=== PATIENT | female | born 1965 | race African-American/Black ===

== ENCOUNTER 2021-07-13 04:16 | Emergency (ER) | payer MEDICAID ==
[~2021-07-13] VITALS: Ht 165.1 cm; Wt 71.0 kg
[~2021-07-13 04:16] MED LIST: metformin
[2021-07-13] MEDS ORDERED: SODIUM CHLORIDE 0.9% 1,000 ML IV ONE (04:30)
[2021-07-13] MEDS ORDERED: KETOROLAC 30MG/ML VIAL IV ONE (04:45)
[2021-07-13 05:15] LABS: BASOPHILS % 0.4 % (0.0-2.0); EOSINOPHILS % 0.1 % (0.0-5.0); HEMATOCRIT. 39.1 % (36.0-48.0); HEMOGLOBIN. 13.6 g/dL (12.0-16.0); LYMPHOCYTES % 24.4 % (20.0-50.0); MEAN CORPUSCULAR VOLUME 103.7 fL (81.0-99.0); MEAN PLATELET VOLUME 8.1 fl (7.4-10.4); MONOCYTES % 5.4 % (2.0-8.0); NEUTROPHILS % 69.7 % (40.0-76.0); PLATELET 247 x1000/uL (130-400); RED BLOOD CELL COUNT 3.77 mill/uL (4.2-5.4); RED CELL DISTRIBUTION WIDTH 14.3 % (11.6-14.6)
[2021-07-13 05:22] LABS: CHLORIDE 110 mEq/L (98-107)
[2021-07-13 05:27] LABS: ETHANOL BLOOD 28 mg/dL
[2021-07-13 05:29] LABS: BETA HYDROXYBUTYRATE 0.1 mMol/L (0.0-0.3)
[2021-07-13] MEDS ORDERED: MORPHINE SULFATE 2 MG/ML CPJ (NOT FOR IM USE) IV SCH (06:15)
[2021-07-13] MEDS ORDERED: METOCLOPRAMIDE HCL 10MG/2ML VIAL IV ONE (06:15)
[2021-07-13] MEDS ORDERED: MORPHINE SULFATE 4 MG/ML CPJ (NOT FOR IM USE) IV ONE (06:15)
[2021-07-13] MEDS ORDERED: TOPUD PO (07:55)
[2021-07-13] MEDS ORDERED: ONDA4TAB5 PO (07:55)
[2021-07-13 08:05] VITALS: BP 155/82
== END 2021-07-13 08:15 | disposition home or self-care (01) ==
LOC: ER 04:44
DX: R10.13 Epigastric pain (principal); E11.9 Type 2 diabetes mellitus without complications
CPT/HCPCS: 36415; 74176; 80053; 80320; 82010; 82962; 83605; 83690; 85025; 96361; 96374; 96375; 99284; J1885; J2270; J2765; J7030; G0480

== ENCOUNTER 2023-08-26 02:28 | Emergency (ER) | payer MEDICAID, OTHER ==
[~2023-08-26] VITALS: Ht 162.6 cm; Wt 91.0 kg
[~2023-08-26 02:28] MED LIST changes: +ONDA4TAB5 PO; +TOPUD PO
[2023-08-26 02:31] VITALS: O2SAT 100
[2023-08-26] MEDS ORDERED: MAGNESIUM/ALUMINUM HYDROXIDE/SIMETHICONE 30ML UDC PO STA (02:38)
[2023-08-26] MEDS ORDERED: ONDANSETRON HCL 4MG/2ML INJ IV STA (02:38)
[2023-08-26] MEDS ORDERED: PANTOPRAZOLE SODIUM 40 MG/VIAL IV STA (02:38)
[2023-08-26] MEDS ORDERED: SODIUM CHLORIDE 0.9% 1,000 ML IV ONE (02:45)
[2023-08-26 02:54] LABS: DIFFERENTIAL COMMENT 0; EOSINOPHILS % 0.1 % (0.0-5.0); HEMATOCRIT. 45.1 % (36.0-48.0); HEMOGLOBIN. 15.5 g/dL (12.0-16.0); LYMPHOCYTES % 36.5 % (20.0-50.0); MEAN CORPUSCULAR HEMOGLOBIN 34.8 pg (28.0-32.0); MEAN CORPUSCULAR HGB CONC 34.4 g/dL (31.0-37.0); MEAN CORPUSCULAR VOLUME 101.3 fL (81.0-99.0); MEAN PLATELET VOLUME 8.3 fl (7.4-10.4); MONOCYTES % 6.2 % (2.0-8.0); NEUTROPHILS % 56.2 % (40.0-76.0); PLATELET 265 x1000/uL (130-400); RED BLOOD CELL COUNT 4.45 mill/uL (4.2-5.4); RED CELL DISTRIBUTION WIDTH 14.2 % (11.6-14.6); WHITE BLOOD COUNT 6.5 x1000/uL (4.5-11.0)
[2023-08-26 03:18] LABS: ALANINE AMINOTRANSFERASE 11 IU/L (10-49); ASPARTATE AMINOTRANSFERASE 20 IU/L (<34); BILIRUBIN TOTAL 1.5 mg/dL (0.1-1.0); CALCIUM 10.4 mg/dL (8.7-10.4); CARBON DIOXIDE 26 mEq/L (21-32); CHLORIDE 102 mEq/L (98-107); CREATININE 0.8 mg/dL (0.6-1.0); GLUCOSE 172 mg/dL (70-105); POTASSIUM 3.3 mEq/L (3.5-5.1); SODIUM 139 mEq/L (136-145); UREA NITROGEN BLOOD 10 mg/dL (9-23)
[2023-08-26 03:19] LABS: INR 1.2; PROTHROMBIN TIME 12.8 sec (9.6-11.0)
[2023-08-26 03:20] LABS: ETHANOL BLOOD < 10 mg/dL (<10)
[2023-08-26] MEDS ORDERED: MORPHINE SULFATE 2 MG/ML CPJ (NOT FOR IM USE) IV ONE (03:45)
[2023-08-26] MEDS ORDERED: PROT40 MT (04:42)
[2023-08-26] MEDS ORDERED: ONDA4TAB50 MT (04:42)
[2023-08-26] MEDS ORDERED: MAG355OR21 MT (04:42)
[2023-08-26 05:01] VITALS: BP 141/72; PULSE 64; RESP 20; TEMP 98.2
== END 2023-08-26 05:12 | disposition home or self-care (01) ==
LOC: ER 02:28
DX: K29.70 Gastritis, unspecified, without bleeding (principal); E11.9 Type 2 diabetes mellitus without complications; Z79.899 Other long term (current) drug therapy
CPT/HCPCS: 80053; 80320; 83605; 83690; 85025; 85610; 36415; 71045; 93005; 96365; 96375; 99285; J2405; C9113; J2270; J7030; Z7610 ×2; 96361; 96374; G0480